=== PATIENT | male | born 1955 | race Native Hawaiian/Other Pacific Islander ===

== ENCOUNTER 2018-11-03 09:23 | Outpatient (CLI) | payer OTHER ==
[~2018-11-03 09:23] MED LIST: AMOX500C85 PO; BENZONATATE200 MG PO
[2018-11-03 10:07] LABS: PLATELET COUNT 296 K/uL (142-355)
[2018-11-03 10:11] LABS: POTASSIUM 4.3 mmol/L (3.6-5.2)
== END 2018-11-03 19:44 | disposition home or self-care (01) ==
LOC: LABW 09:23
PROVIDERS: Internal Medicine
DX: I10 Essential (primary) hypertension (principal); R53.82 Chronic fatigue, unspecified; R53.83 Other fatigue; R05 Cough
CPT/HCPCS: 36415; 80053; 80061; 81000; 84402; 84403; 84439; 84443; 85027; 85651; 86663; 86665; 87497

== ENCOUNTER 2020-04-26 13:40 | Outpatient (CLI) | payer OTHER ==
[2020-04-26 14:36] LABS: PLATELET COUNT 316 K/uL (142-355)
[2020-04-26 15:03] LABS: POTASSIUM 4.2 mmol/L (3.6-5.2)
== END 2020-04-26 23:41 | disposition home or self-care (01) ==
LOC: LAB 13:40
PROVIDERS: Internal Medicine
DX: Z00.00 Encounter for general adult medical examination without abnormal findings (principal); Z12.5 Encounter for screening for malignant neoplasm of prostate; Z79.899 Other long term (current) drug therapy
CPT/HCPCS: 80053; 80061; 81000; 84153; 84439; 84443; 85027

== ENCOUNTER 2020-05-03 15:21 | Outpatient (CLI) | payer OTHER | END 2020-05-03 20:15 | disposition home or self-care (01) | LOC: RAD 15:21 | DX: M54.41 Lumbago with sciatica, right side (principal) ==

== ENCOUNTER 2020-07-11 10:24 | Day surgery (SDC) | payer OTHER ==
[2020-07-06 11:24] LABS: POTASSIUM 3.9 mmol/L (3.6-5.2)
[2020-07-06 14:16] LABS: PLATELET COUNT 262 K/uL (142-355)
[~2020-07-11] VITALS: Ht 30.5 cm; Wt 0.5 kg
== END 2020-07-11 14:40 | disposition home or self-care (01) ==
LOC: OR 10:24
PROVIDERS: ATTEND Internal Medicine Gastroenterology
PROC: 0DJD8ZZ Inspection of Lower Intestinal Tract, Via Natural or Artificial Opening Endoscopic (ICD-10-PCS; principal; 2020-07-11)
DX: K64.8 Other hemorrhoids (principal); Z12.11 Encounter for screening for malignant neoplasm of colon
CPT/HCPCS: 80053; 85027; J1885; J2001; J2704

== ENCOUNTER 2021-03-20 09:15 | Outpatient (CLI) | payer OTHER | END 2021-03-20 21:09 | disposition home or self-care (01) | LOC: LAB 09:15 | PROVIDERS: ATTEND Internal Medicine | DX: U07.1 COVID-19 (principal); R05 Cough; R50.9 Fever, unspecified; Z20.822 Contact with and (suspected) exposure to COVID-19 | CPT/HCPCS: 87635; G2023; U0003 ==

== ENCOUNTER 2021-03-27 08:25 | Outpatient (CLI) | payer OTHER ==
[~2021-03-27] VITALS: Ht 180.3 cm; Wt 84.4 kg
== END 2021-03-27 19:05 | disposition home or self-care (01) ==
LOC: INF 08:25
PROVIDERS: ATTEND Family Medicine
DX: Z23 Encounter for immunization (principal); U07.1 COVID-19
CPT/HCPCS: 96365; M0244

== ENCOUNTER 2021-04-18 11:17 | Emergency (ER) | payer OTHER ==
[~2021-04-18] VITALS: Ht 180.3 cm; Wt 84.4 kg
[2021-04-18] MEDS ORDERED: COZAAR25 MG PO (11:27)
[2021-04-18 11:45] LABS: PLATELET COUNT 298 K/uL (142-355)
[2021-04-18 11:54] LABS: POTASSIUM 3.9 mmol/L (3.6-5.2); SODIUM 138 mmol/L (136-145)
[2021-04-18 12:04] LABS: PARTIAL THROMBOPLASTIN TIME 25.6 SECONDS (24.5-33.6)
[2021-04-18 12:40] VITALS: BP 155/95; TEMP 97.5
== END 2021-04-18 12:40 | disposition home or self-care (01) ==
LOC: ED 11:17
PROVIDERS: Emergency Medicine
DX: G45.9 Transient cerebral ischemic attack, unspecified (principal); I10 Essential (primary) hypertension; Z91.14 Patient's other noncompliance with medication regimen; Z86.16 Personal history of COVID-19
CPT/HCPCS: 36415; 80053; 84484; 85027; 85610; 85730; 93005; 99283

== ENCOUNTER 2021-04-25 09:30 | Outpatient (CLI) | payer OTHER ==
[~2021-04-25 09:30] MED LIST changes: +COZAAR25 MG PO
== END 2021-04-25 19:10 | disposition home or self-care (01) ==
LOC: LABW 09:30
PROVIDERS: ATTEND Internal Medicine
DX: I63.9 Cerebral infarction, unspecified (principal)
CPT/HCPCS: 36415; 80061

== ENCOUNTER 2021-04-29 09:31 | Outpatient (CLI) | payer OTHER | END 2021-04-29 20:01 | disposition home or self-care (01) | LOC: US 09:31 | PROVIDERS: ATTEND Internal Medicine | DX: I63.9 Cerebral infarction, unspecified (principal) ==

== ENCOUNTER 2021-06-12 09:06 | Outpatient (CLI) | payer OTHER | END 2021-06-12 20:41 | disposition home or self-care (01) | LOC: MRI 09:06 | PROVIDERS: ATTEND Specialist | DX: G45.0 Vertebro-basilar artery syndrome (principal); I63.9 Cerebral infarction, unspecified ==

== ENCOUNTER 2021-08-13 10:16 | Outpatient (CLI) | payer OTHER | END 2021-08-13 19:12 | disposition home or self-care (01) | LOC: LABW 10:16 | PROVIDERS: ATTEND Internal Medicine Gastroenterology | DX: K64.0 First degree hemorrhoids (principal) | CPT/HCPCS: 82272 ==

== ENCOUNTER 2021-08-14 08:31 | Outpatient (CLI) | payer OTHER | END 2021-08-14 18:51 | disposition home or self-care (01) | LOC: LABW 08:31 | PROVIDERS: ATTEND Specialist | DX: I63.9 Cerebral infarction, unspecified (principal) | CPT/HCPCS: 36415; 85240; 85652; 86147 ==

== ENCOUNTER 2021-10-16 15:16 | Outpatient (CLI) | payer OTHER ==
[2021-10-16 15:27] LABS: PLATELET COUNT 311 K/uL (142-355)
[2021-10-16 16:01] LABS: POTASSIUM 4.4 mmol/L (3.6-5.2)
== END 2021-10-16 19:04 | disposition home or self-care (01) ==
LOC: LAB 15:16
PROVIDERS: ATTEND Internal Medicine
DX: Z00.00 Encounter for general adult medical examination without abnormal findings (principal); I63.9 Cerebral infarction, unspecified; Z79.899 Other long term (current) drug therapy; Z12.5 Encounter for screening for malignant neoplasm of prostate; N40.0 Benign prostatic hyperplasia without lower urinary tract symptoms
CPT/HCPCS: 80053; 80061; 81000; 84153; 84439; 84443; 85027

== ENCOUNTER 2022-04-15 12:15 | Outpatient (CLI) | payer OTHER ==
[2022-04-15 13:12] LABS: PLATELET COUNT 324 K/uL (142-355)
== END 2022-04-15 19:37 | disposition home or self-care (01) ==
LOC: LAB 12:15
PROVIDERS: ATTEND Internal Medicine
DX: Z01.818 Encounter for other preprocedural examination (principal)
CPT/HCPCS: 80048; 85027

== ENCOUNTER 2022-10-22 12:06 | Outpatient (CLI) | payer OTHER ==
[2022-10-22 12:52] LABS: PLATELET COUNT 313 K/uL (142-355)
[2022-10-22 13:06] LABS: POTASSIUM 4.1 mmol/L (3.6-5.2)
== END 2022-10-22 23:00 | disposition home or self-care (01) ==
LOC: LAB 12:06
PROVIDERS: ATTEND Internal Medicine
DX: Z00.00 Encounter for general adult medical examination without abnormal findings (principal); Z12.5 Encounter for screening for malignant neoplasm of prostate; N40.0 Benign prostatic hyperplasia without lower urinary tract symptoms; Z79.899 Other long term (current) drug therapy
CPT/HCPCS: 80053; 80061; 81002; 84153; 84439; 84443; 85027

== ENCOUNTER 2022-10-28 07:56 | Outpatient (CLI) | payer OTHER | END 2022-10-28 19:17 | disposition home or self-care (01) | LOC: US 07:56 | PROVIDERS: ATTEND Internal Medicine | DX: Z13.6 Encounter for screening for cardiovascular disorders (principal); Z12.2 Encounter for screening for malignant neoplasm of respiratory organs; F17.210 Nicotine dependence, cigarettes, uncomplicated ==